=== PATIENT | male | born 1985 | race Caucasian/White ===

== ENCOUNTER → 2022-12-05 09:40 | Outpatient (CLI) | payer BC, SELFPAY ==
--- NOTE | ~2022-12-05 | US_ITS ---
EXAMINATION: US scrotum doppler DATE: 12/05/2022 10:03 INDICATION: Atrophy of the right testis TECHNIQUE: Testicular sonogram utilizing grayscale and Doppler COMPARISON: None. FINDINGS: The right testis measures 2.6 x 1.2 x 2.1 cm. There are punctate calcifications of the righ t testicle. The left testis measures 4.1 x 2.0 x 2.8 cm. There is normal vascular flow to both testes . The right epididymis is normal with normal vascular flow. The left epididymis is normal with normal vascular flow. There is no varicocele or hydrocele. IMPRESSION: 1. Atrophy of the right testicle, compared to the left, with punctate calcifications. Reviewed, dictated and finalized at location B. [facility] OF NURSING IMPRESSION: 1. Atrophy of the right testicle, compared to the left, with punctate calcifica tions.
== END ==
PROVIDERS: PCP Family Medicine Sports Medicine; Visit Provider Urology
DX: N50.0 Atrophy of testis (principal)
CPT/HCPCS: 76870; 93976

== ENCOUNTER 2023-02-25 06:56 | Day surgery (SDC) | payer BC, SELFPAY ==
[2023-02-18 15:47] VITALS: BMI 26.4
--- NOTE | 2023-02-18 15:50 | PC.NURSE ---
Report to the Outpatient Waiting Room, entrance under the green pavilion located off [facility], at time 1000 on date 02/25/23. Planned Procedure Time: 1200. Time changes happen often and if your time is changed the preop area will call you the afternoon before. - You and your visitor will be asked to self-screen and do not enter if you have any COVID symptoms. - A mask is optional within the hospital at this time. Patients may have clear liquids (water, carbonated beverages, clear teas, apple juice) until 3 hours prior to surgery with a maximum of 20 ounces. - No food from midnight until time of surgery Take the following medications with a SIP of water the morning of surgery: N/A DO NOT STOP ANY OF YOUR OTHER PRESCRIPTION MEDICATIONS PRIOR TO SURGERY EXCEPT THE FOLLOWING Medications to discontinue per physician: N/A Date to take last dose: N/A Please no make-up, nail tajik, hairspray, perfume, deodorant, or body powder the day of surgery. No jewelry (including any body piercings) or valuables the day of surgery, leave them at home. Please take a shower or bath the night before, or the morning of, surgery with an antibacterial soap. Wear comfortable, loose fitting clothing. - Jewelry must be removed prior to entering the operating room. Rings and piercings that are not removed may be cut off. - The hospital will not accept responsibility for valuables. - Please leave all valuables, including medications, at home the day of surgery. If you are going home after surgery, a licensed pack train driver must drive you home. - NO public transportation without another adult if you receive anesthesia. - We recommend that an adult stay with you for 24 hours following discharge. - We also recommend that you do not drive, make important decision, drink alcoholic beverages, or take any drugs that were not prescribed by your health care provider for at least 24 hours after your discharge time. Follow any additional instructions given to you from your surgeon. If you or anyone in your household have experienced Covid symptoms in the past week, please notify your surgeon or the nurse liaison at the phone number below for possible testing. Telephone instructions given to PT - YAKELIN PERSAUD and asked if any additional questions and then verbalized understanding. Patient advised to call surgeon office or pre surgery nurse liaison [phone] if any additional questions.
[2023-02-25] MEDS: ACETAMINOPHEN 500 MG TABLET 1000 MG PO (10:11)
[2023-02-25] MEDS: LACTATED RINGERS 1,000 ML 30 ML IV CONT (10:30)
[2023-02-25 10:35] VITALS: BP 131/91; PULSE 69; RESP 16; TEMP 36.6; O2SAT 100
--- NOTE | 2023-02-25 11:14 | P.PNAN_ITS ---
Anes - Initial Pre Proc Eval Procedure: Operation Date: 02/25/23 12:00 Proposed Procedures p Bilateral Vasectomy, Skin Tag Removal from Genital Area - Cipriano Hopkins MD Date/Time: 02/25/23 11:14 Surgeon: Cipriano Hopkins MD Pre Op Diagnosis: Male Sterilization Patient Data Age: 37 Gender: M Height: 1.8 m Weight: 82 kg Last Vital Signs Temp 36.6 C 02/25/23 10:35 Pulse 69 02/25/23 10:35 Resp 16 02/25/23 10:35 BP 131/91 H 02/25/23 10:35 Pulse Ox 100 02/25/23 10:35 O2 Del Method Room Air 02/25/23 10:35 Allergies Allergy/AdvReac Type Severity Reaction Status Date / Time No Known Allergies Allergy Verified 02/25/23 10:11 Home Medications Medication Instructions Recorded Confirmed Type No Home Medications 02/18/23 02/18/23 History Patient hx anesthesia problems: none Family hx anesthesia problems: none Results Review: All pre-operative results and documents have been reviewed as part of the pre- operative evaluation. [facility] Social History Social History Smoking status: Never smoker Alcohol intake: current Alcohol use details: RARE Substance use: never Substance use type: does not use Living arrangements: with family Spiritual care concerns: No Anes - Eval Final PreProcedure Day of Procedure 02/25/23 11:14 Patient weight: normal Heart: regular rate and rhythm Lungs: clear to auscultation Airway: Mallampati scale class II Neurological: alert and oriented Last oral intake: >/= 8 hours ASA classification: I Emergent: no Anesthetic plan: proceed Anesthesia type and monitoring: general GIVS and standard monitoring Results Review: All pre-operative results and documents have been reviewed as part of the pre- operative evaluation. Informed Consent: The patient's anesthetic plan and its attendant risks and benefits were discussed with the patient/family/POA. Questions were solicited and answers provided to the satisfaction of the patient/family/POA.
--- NOTE | 2023-02-25 12:04 | PM.IMHP ---
H&P: HPI History of Present Illness Date/Time: 02/25/23 12:04 Chief Complaint: desire for sterility left upper thigh lesion PMFSH Social History Social History Smoking status: Never smoker Alcohol intake: current Alcohol use details: RARE Substance use: never Substance use type: does not use Living arrangements: with family Spiritual care concerns: No Meds Home Medications and Allergies Home Medications Medication Instructions Recorded Confirmed Type No Home Medications 02/18/23 02/18/23 History Allergies Allergy/AdvReac Type Severity Reaction Status Date / Time No Known Allergies Allergy Verified 02/25/23 10:11 Vital Signs Vital Signs - 24 hr 02/25/23 10:35 Temperature 36.6 C Pulse Rate 69 Respiratory Rate 16 Blood Pressure 131/91 H Pulse Oximetry 100 Oxygen Delivery Room Air Exam Narrative: awake and alert bilateral testes - right smaller than left. bilateral vas present 1cm left upper thigh skin lesion Assessment and Plan Assessment and plan (1) Contraception management: Code(s): Z30.9 - Encounter for contraceptive management, unspecified Status: Acute (2) Skin lesion: Code(s): L98.9 - Disorder of the skin and subcutaneous tissue, unspecified Status: Acute Plan Plan bilateral vasectomy and removal of left upper thigh skin lesion - risks, benefits and alternative discussed. Patient agrees to proceed
--- NOTE | 2023-02-25 12:09 | WPDHPUPDATE1 ---
History and Physical Update Update Date/Time: 02/25/23 12:09 History and Physical has been reviewed, including an updated exam of the patient. There are NO changes in the patient's condition. Risks, benefits, and alternatives have been discussed and questions answered. Patient agrees to proceed with procedure.
[2023-02-25] MEDS: BUPivacaine HCL 0.5% PF 30 ML VIAL 10 ML INFILTRATE (12:15)
[2023-02-25] MEDS: ceFAZolin 2 GM/D5W 50 ML 2 GM/50 ML BAG IVPB (12:15)
[2023-02-25 13:00] VITALS: BP 99/62; PULSE 64; RESP 14; O2SAT 94
--- NOTE | 2023-02-25 13:03 | W.PM.PROC2 ---
Procedure Note - Detailed Date of Procedure 02/25/23 Pre-op Diagnosis Male Sterilization Skin lesion Post-op Diagnosis Same Procedure Performed -bilateral non scalpel vasectomy -excision of left superior thigh skin lesion, 1cm Surgeon Cipriano Hopkins MD Anesthesia MAC Description of Procedure Informed consent was obtained. Patient taken to operating room. He was induced anesthesia. Was prepped and draped in normal sterile fashion. The 1cm lesion the left upper thigh was identified it was anesthetized with Marcaine it was excised sharply. The base was cauterized. We then focused on the vasectomy and the scrotal skin was opened with the non scalpel piercing forceps over the right vas. Of note the right testicle was rather small. The vas deferens itself was normal in size and shape it was grasped and a 2cm portion was excised. The ends of the vas deferens cauterized, 3-0 chromic suture placed at the end of each vas and a fascial interposition was performed. The right vas deferens was returned to the orthotopic position identical procedure was performed on the left side. There was good hemostasis. Subcutaneous tissue was cauterized. As there was minimal skin separation stitches were placed in the skin. Neosporin was placed over both. The upper thigh and scrotal operative areas. Band-Aids were placed. Patient was awakened taken recovery room stable condition Pathology Yes Complications No immediate complications Condition Stable Disposition PACU
[2023-02-25 13:30] VITALS: BP 117/78; PULSE 55; RESP 14; O2SAT 100
[2023-02-25 14:00] VITALS: BP 118/84; PULSE 61; RESP 16
== END 2023-02-25 14:10 | disposition home or self-care (01) ==
PROVIDERS: PCP Family Medicine Sports Medicine; Visit Provider Urology
PROC: (CPT 55250; principal; 2023-02-25 12:00)
DX: Z30.2 Encounter for sterilization (principal); L91.8 Other hypertrophic disorders of the skin
CPT/HCPCS: 55250; 11200; 88300; 88305; A9270; J0690; J2250; J2405; J2704; J3010; J7120